=== PATIENT | female | born 1970 | race Caucasian/White ===

== ENCOUNTER 2021-09-28 13:04 | Outpatient (CLI) | payer MEDICARE | END 2021-09-28 13:05 | disposition home or self-care (01) | LOC: CSHCT 13:04 | PROVIDERS: ATTEND Physician Assistant | DX: M54.12 Radiculopathy, cervical region (principal); M54.14 Radiculopathy, thoracic region; M54.16 Radiculopathy, lumbar region; M85.88 Other specified disorders of bone density and structure, other site; M51.36 Other intervertebral disc degeneration, lumbar region; M51.34 Other intervertebral disc degeneration, thoracic region; M48.02 Spinal stenosis, cervical region | CPT/HCPCS: 72125; 72128; 72131 ==

== ENCOUNTER 2022-10-19 08:07 | Outpatient (CLI) | payer OTHER | END 2022-10-19 08:08 | disposition home or self-care (01) | LOC: CSHMRI 08:07 | PROVIDERS: ATTEND Neurological Surgery | DX: M54.2 Cervicalgia (principal); M43.22 Fusion of spine, cervical region; M54.6 Pain in thoracic spine; M43.25 Fusion of spine, thoracolumbar region; M54.16 Radiculopathy, lumbar region; M54.50 Low back pain, unspecified; M25.551 Pain in right hip; M48.02 Spinal stenosis, cervical region; Z98.890 Other specified postprocedural states; M40.204 Unspecified kyphosis, thoracic region; M43.14 Spondylolisthesis, thoracic region; Z98.1 Arthrodesis status; M43.16 Spondylolisthesis, lumbar region; M48.061 Spinal stenosis, lumbar region without neurogenic claudication; M81.0 Age-related osteoporosis without current pathological fracture; M67.853 Other specified disorders of tendon, right hip; S76.011A Strain of muscle, fascia and tendon of right hip, initial encounter; M76.01 Gluteal tendinitis, right hip | CPT/HCPCS: 72125; 72128; 72131 ==

== ENCOUNTER 2022-11-18 10:47 | Outpatient (CLI) | payer MEDICARE | END 2022-11-18 10:48 | disposition home or self-care (01) | LOC: CSHMAMMO 10:47 | PROVIDERS: ATTEND Neurological Surgery | DX: M81.0 Age-related osteoporosis without current pathological fracture (principal); M85.852 Other specified disorders of bone density and structure, left thigh | CPT/HCPCS: 77080 ==